=== PATIENT | male | born 1975 | race Caucasian/White ===

== ENCOUNTER → 2018-09-11 16:48 | Outpatient (CLI) | payer OTHER, SELFPAY ==
--- NOTE | 2018-09-11 16:56 | DI.MRI.S_ITS ---
PROCEDURE: MR FOOT RT WO CON INDICATIONS: PAIN IN RIGHT FOOT TECHNIQUE: Noncontrast sagittal T1 spin echo and T2 fast spin echo with fat saturation, long-axis T1 spin echo and T2 fast spin echo with fat saturation, short-axis T1 spin echo and T2 fast spin echo with fat saturation through the forefoot. COMPARISON: None. FINDINGS: Image quality: Excellent. Bones and joints: No bone marrow contusions or metatarsal stress fractures. Osteoarthritic changes are noted involving dorsal aspect of talonavicular joint and naviculocuneiform joint with joint space narrowing and dorsal marginal osteophyte formation. Osteoarthritic changes also noted involving first and second TMT joints. The sesamoid bones appear in expected positions, without internal edema. No metatarsophalangeal joint degeneration. No intraosseous lesions. Soft tissues: The visualized plantar foot muscles demonstrate normal signal and bulk. Visualized flexor and extensor tendons appear intact, without tenosynovitis. The distal insertions of the peroneus brevis and longus tendons appear intact. The principal Lisfranc ligament appears intact. No soft tissue ganglion cysts or bursal fluid collections. Sagittal images demonstrate no evidence for plantar plate tears. IMPRESSION: 1. Osteoarthritic changes involving talonavicular joint, naviculocuneiform joint, first and second TMT joints with joint space narrowing and dorsal marginal osteophyte formation. No fracture or dislocation. No marrow edema. 2. No gross right foot tendon or ligament pathology is seen. Dictated by: Jamil Morales M.D. on 09/14/2018 at 9:42 Approved by: Jamil Morales M.D. on 09/14/2018 at 10:29
== END ==
PROVIDERS: Visit Provider Family Medicine
DX: M79.671 Pain in right foot (principal); M19.071 Primary osteoarthritis, right ankle and foot; M25.774 Osteophyte, right foot
CPT/HCPCS: 73718